=== PATIENT | female | born 1975 | race Hispanic/Latino ===

== ENCOUNTER 2019-03-04 20:41 | Emergency (ER) | payer OTHER ==
[2019-03-04] MEDS ORDERED: clonazePAM 0.5 MG TAB PO ONE (22:12)
--- NOTE | 2019-03-04 22:18 | Emergency Department Report ---
HPI - General Chief Complaint: Psych Time Seen by Provider: 03/04/19 21:38 - HPI HPI: 43-year-old female presents to the emergency department for a mental health evaluation. The patient was just discharged from [facility] after being there for about 10 days for her bipolar disorder with psychotic features. She was discharged to a penitentiary "that would not take me." She presents with prescriptions for lithium, Benadryl, Minipress, Depakote that she did not fill because "I do not have insurance." The patient complains of some auditory and visual hallucinations. She says that she is eating a peanut butter and jelly sandwich and sees bugs crawling around. She has multiple voices in her head that she says are yelling at her roommate in room 16. The patient also complains of some suicidal ideations without a plan. She says she does have a history of multiple previous suicide attempts in the past. ED Past Medical Hx - Past Medical History Previous Medical History?: Yes Hx Hypertension: Yes Hx Psychiatric Treatment: Yes (bipolar, psyh features) Additional medical history: Hx. Si, and hallucinatio - Surgical History Past Surgical History?: No - Social History Smoking Status: Current Every Day Smoker Substance Use Type: None - Medications Home Medications: Home Medications Medication Instructions Recorded Confirmed Last Taken Type No Known Home Medications [No 03/04/19 03/04/19 Unknown History Reported Home Medications] ED Review of Systems ROS: Stated complaint: MH EVAL/HEARING VOICES Other details as noted in HPI Comment: All other systems reviewed and negative Constitutional: denies: chills, fever Respiratory: denies: shortness of breath Cardiovascular: denies: chest pain Gastrointestinal: denies: abdominal pain Musculoskeletal: denies: back pain Skin: denies: rash Neurological: denies: headache, weakness Psychiatric: anxiety, auditory hallucinations, visual hallucinations, suicidal thoughts. denies: homicidal thoughts Physical Exam - Physical Exam Vital Signs: Vital Signs 03/04/19 22:09 Temperature 98.7 F Pulse Rate 74 Respiratory 16 Rate Blood Pressure 130/80 [Left] Physical Exam: GENERAL: The patient is well-developed well-nourished. HEENT: Normocephalic. Atraumatic. Patient has moist mucous membranes. EYES: Extraocular motions are intact. NECK: Supple. Trachea is midline CHEST/LUNGS: Clear to auscultation. There is no respiratory distress noted. HEART/CARDIOVASCULAR: Regular. There is no tachycardia. ABDOMEN: Abdomen is soft, nontender. Patient has normal bowel sounds. There is no abdominal distention. SKIN: Skin is warm and dry. NEURO: The patient is awake, alert, and oriented. The patient is cooperative. Normal speech. MUSCULOSKELETAL: There is no tenderness or deformity. There is no evidence of acute injury. ED Course Vital Signs 03/04/19 22:09 Temperature 98.7 F Pulse Rate 74 Respiratory 16 Rate Blood Pressure 130/80 [Left] ED Medical Decision Making - Lab Data Result diagrams: 03/04/19 22:50 03/04/19 22:50 - Medical Decision Making This patient presents to the emergency department with the complaint of some hallucinations and suicidal ideations. This is occurring one day after being discharged from a previous psychiatric facility. Her labs have been unremarkable. Vital signs stable throughout her ED course. She was seen by the psychiatric assessment team who agrees with the plan for inpatient psychiatric admission. She is medically cleared for psychiatric placement. Critical Care Time: No Critical care attestation.: If time is entered above; I have spent that time in minutes in the direct care of this critically ill patient, excluding procedure time. ED Disposition Clinical Impression: Hallucinations, Bipolar disorder with psychotic features, Suicidal ideations Disposition: [id number]/TX-[id number] PSY HOSP/PSY UNIT Is pt being admited?: No Condition: Stable Referrals: GAVIN URBINA MD [Primary Care Provider] - 3-5 Days
[2019-03-04 23:28] LABS: Basophils % (Auto) 0.3 % (0.0-1.8); Eosinophils # (Auto) 0.1 K/mm3 (0.0-0.4); Eosinophils % (Auto) 1.1 % (0.0-4.3); Hematocrit 41.1 % (30.3-42.9); Hemoglobin 13.6 gm/dl (10.1-14.3); Lymphocytes # (Auto) 3.2 K/mm3 (1.2-5.4); Lymphocytes % (Auto) 25.2 % (13.4-35.0); Mean Corpuscular HGB Conc 33 % (30-34); Mean Corpuscular Volume 97 fl (79-97); Monocytes # (Auto) 0.6 K/mm3 (0.0-0.8); Monocytes % (Auto) 4.7 % (0.0-7.3); Platelet Count 273 K/mm3 (140-440); Red Blood Count 4.23 M/mm3 (3.65-5.03); Red Cell Distribution Width 12.9 % (13.2-15.2)
[2019-03-04 23:48] LABS: BUN/Creatinine Ratio 20; Blood Urea Nitrogen 12 mg/dL (7-17); Calcium 9.6 mg/dL (8.4-10.2); Hemolysis Index 8
[2019-03-05 07:00] LABS: Bilirubin,Urine NEG (Negative); Blood,Urine MOD (Negative); Color,Urine Yellow (Yellow); Mucus,Urine 1+ /HPF; Protein,Urine <15 mg/dL mg/dL (Negative)
[2019-03-05 07:24] LABS: Amphetamine Screen,Urine PRESUMPTIVE NEGATIVE; Benzodiazepines Screen,Urine PRESUMPTIVE NEGATIVE; Cannabinoid Screen,Urine PRESUMPTIVE NEGATIVE; Cocaine Screen,Urine PRESUMPTIVE NEGATIVE; Methadone Screen,Urine PRESUMPTIVE NEGATIVE; Opiate Screen,Urine PRESUMPTIVE NEGATIVE
[2019-03-05] MEDS ORDERED: amLODIPine 5 MG TAB PO ONE (12:14)
[2019-03-05] MEDS ORDERED: clonazePAM 0.5 MG TAB PO ONE (12:14)
[2019-03-06] MEDS ORDERED: ACETAMINOPHEN 325 MG TAB ONE (01:44)
[2019-03-06] MEDS ORDERED: ACETAMINOPHEN 325 MG TAB PO ONE (01:52)
--- NOTE | 2019-03-06 10:56 | Consultation ---
History of Present Illness - Reason for Consult Consult date: 03/06/19 Reason for consult: Assess and manage mental health - Chief Complaint Chief complaint: SI/HI with plan, A/V hallucinations - History of Present Psychiatric Illness Digna Knight is a 43y/o female patient who states she was brought to the ER after she [place] She is sitting on side of cot. A/O x 3. Tearful. She states she's "not feeling too good." She says she's having suicidal thoughts and "hear voices that are telling her to kill herself and hurt other people." The patient says she requested to be placed in another room because the "voices were telling her to strangle the girl in her room." She then says, "that poor girl, she didn't do anything to me. Nobody's taking me serious." Ms. Knight says if she gets her hands on a "window string, she is going to hang herself." She says she sees "shadows of poe and last night bugs were crawling everywhere." The patient says her "sleep is not good. It's up and down." She says she has been off her meds but "they are not working." She says her appetite is "picky." PAST PSYCHIATRIC HISTORY: Diagnoses: Bipolar w/psychotic features, PTSD, anxiety Suicide attempts or Self-harm behavior: "21 times" Prior psychiatric hospitalizations: "21 times" Substance Abuse history: Nicotine, 1/2 ppd, ETOH abuse last 2012 Previous psychiatric medications tried: [place], depakote, abilify, seroquel, risperidone (states the latter two she can't take.) Outpatient treatment: yes PAST MEDICAL HISTORY: Denies Family Psychiatric History None reported or documented SOCIAL HISTORY Marital Status: Living Arrangements: Homeless Employment Status: Unemployed Access to guns/weapons: "not at the moment" Education: College graduate History of Abuse: Denies Legal History: Denies ROS: Constitutional: Negative for weight loss ENT: Negative for stridor Respiratory: Negative for cough or hemoptysis All other systems reviewed and are negative MENTAL STATUS General Appearance and Behavior: age appropriate, disheveled, cooperative Cooperation: Cooperative Psychomotor Behavior: within normal limits Mood: Not so good Affect and affective range: Tearful, congruent with mood Thought Process: Goal-directed Thought Content: Within reality Speech: Normal volume and Regular rate and rhythm Intellectual Functioning Average Suicidal Ideation: Yes with active plan Homicidal Ideation: Yes with active plan Impulse Control: Intact Insight and Judgment: Limited Memory: Normal Attention: Normal Orientation: alert and oriented Assessment: Bipolar w/Phychotic Features RECOMMENDATIONS MEDICATIONS: -Abilify 30mg po daily (stated home dose) to decrease psychosis -Trazodone 50mg po qhs to induce sleep -Melatonin 5mg po PRN to promote rest -Nicotine patch 14mg to decrease urge for smoking -Depakote 250mg po TID to stablize mood -Zoloft 25mg po daily to decrease depressive symptoms -Geodon 10mg po IM prn agitation to keep pt calm Risks, benefits and alternatives of medications discussed with the patient, questions answered and consent obtained from patient. PSYCHOTHERAPY: Supportive psychotherapy provided MEDICAL: Per primary team DELIRIUM PRECAUTIONS: Please re-orient patient frequently, keep lights on during the day, and minimize benzodiazepines and opiates as these medications could worsen patient's confusion. 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 I have reviewed this treatment plan, including potential risks and benefits of medications, with the patient and/or family members and relevant hospital providers. Please contact with any questions and/or concerns. Thank you for this consult. Medications and Allergies Allergies Allergy/AdvReac Type Severity Reaction Status Date / Time No Known Allergies Allergy Verified 03/04/19 21:47 Home Medications Medication Instructions Recorded Confirmed Last Taken Type No Known Home Medications [No 03/04/19 03/04/19 Unknown History Reported Home Medications] Mental Status Exam - Vital signs Last Vital Signs Temp 97.8 F 03/06/19 08:46 Pulse 68 03/06/19 08:46 Resp 18 03/06/19 02:06 BP 147/72 03/06/19 08:46 Pulse Ox 97 03/06/19 08:46 Results Result Diagrams: 03/04/19 22:50 03/04/19 22:50 All other labs normal.
[2019-03-06] MEDS ORDERED: ZIPRASIDONE MESYLATE 20 MG VIAL IM PRN (11:16)
[2019-03-06] MEDS ORDERED: MELATONIN 5 MG TAB PO PRN (11:24)
[2019-03-06] MEDS ORDERED: SERTRALINE 25 MG TAB PO SCH (12:00)
[2019-03-06] MEDS ORDERED: NICOTINE 14 MG/24 HR PATCH TD SCH (12:00)
[2019-03-06] MEDS ORDERED: ARIPiprazole 15 MG TAB PO SCH (12:00)
[2019-03-06 12:15] LABS: HCG Qualitative,Urine Negative (Negative)
[2019-03-06] MEDS ORDERED: DIVALPROEX ER 250 MG TAB PO SCH (14:00)
[2019-03-06 20:05] VITALS: BP 142/86
[2019-03-06] MEDS ORDERED: traZODone 50 MG TAB PO SCH (22:00)
== END 2019-03-06 22:16 ==
LOC: EEVIPCON 20:41 → ED 20:41
DX: F31.9 Bipolar disorder, unspecified (principal); I10 Essential (primary) hypertension; F17.200 Nicotine dependence, unspecified, uncomplicated; Z79.899 Other long term (current) drug therapy
CPT/HCPCS: 36415; 80048; 80164; 80178; 80307; 80320; 81001; 81025; 85025; G0480